=== PATIENT | female | born 1950 | race Caucasian/White ===

== ENCOUNTER 2018-06-01 10:23 | Emergency (ER) | payer BC ==
[~2018-06-01] VITALS: Ht 152.4 cm; Wt 71.2 kg
[2018-06-01 10:44] VITALS: BP 144/79; Ht 152.4 cm; Wt 71.2 kg
== END 2018-06-01 14:09 | disposition left against medical advice (07) ==
LOC: ED 10:23
DX: Z53.21 Procedure and treatment not carried out due to patient leaving prior to being seen by health care provider (principal)